=== PATIENT | male | born 1950 | race Caucasian/White ===

== ENCOUNTER 2018-01-13 10:21 | Inpatient (IN) | payer OTHER, MEDICARE ==
[~2018-01-13] VITALS: Ht 175.3 cm; Wt 85.9 kg
[2018-01-13 11:54] LABS: BASOPHILS % (AUTO) 0.1 % (0-1); EOSINOPHILS % (AUTO) 0 % (0-6); HEMATOCRIT 30.6 % (42.0-52.0); HEMOGLOBIN 10.5 g/dl (14.0-17.9); LYMPHOCYTES # (AUTO) 0.7 X10'3 (1.1-4.8); LYMPHOCYTES % (AUTO) 4.1 % (21-51); MEAN CORPUSCULAR HEMOGLOBIN 29.9 PG (27.0-31.0); MEAN CORPUSCULAR HGB CONC 34.3 % (33.0-36.5); MEAN PLATELET VOLUME 7.4 FL (7.4-10.4); MONOCYTES # (AUTO) 1.3 X10'3 (0-0.9); MONOCYTES % (AUTO) 7.5 % (2-12); NEUTROPHILS # (AUTO) 15.7 X10'3 (1.8-7.7); NEUTROPHILS % (AUTO) 88.3 % (42-75); PLATELET COUNT 314 X10'3 (140-440); RED BLOOD COUNT 3.51 X10'6 (4.70-6.10); WHITE BLOOD COUNT 17.7 X10'3 (4.5-11.0)
[2018-01-13 12:23] LABS: ALANINE AMINOTRANSFERASE 20 U/L (12-78); ALBUMIN 2.6 G/DL (3.4-5.0); ALBUMIN/GLOBULIN RATIO 0.6 (1.1-1.5); ALKALINE PHOSPHATASE 92 IU/L (46-116); ANION GAP 9 (8-16); ASPARTATE AMINO TRANSFERASE 14 U/L (10-37); BILIRUBIN,TOTAL 0.6 MG/DL (0.1-1.0); BLOOD UREA NITROGEN 28 MG/DL (7-18); BUN/CREATININE RATIO 17.1 (5.4-32.0); CALCIUM 9.1 MG/DL (8.5-10.1); CHLORIDE 102 MMOL/L (99-107); CREATININE 1.64 MG/DL (0.60-1.10); ETHANOL < 0.010 GM/DL (0.0-0.010); GLUCOSE 291 MG/DL (70-104); LIPASE < 50 U/L (73-393); MAGNESIUM 1.5 MG/DL (1.5-2.4); POTASSIUM 4.3 MMOL/L (3.5-5.1); SODIUM 137 MMOL/L (135-145); TOTAL CARBON DIOXIDE 26.3 MMOL/L (24-32); TOTAL PROTEIN 7.1 G/DL (6.4-8.2); eGFR 42 ML/MIN
[2018-01-13 12:53] LABS: INR 1.1 INR; PARTIAL THROMBOPLASTIN TIME 31 SECONDS (22-32); PROTHROMBIN TIME 11.8 SECONDS (9.0-12.0)
[2018-01-13 13:23] LABS: CLARITY,URINE CLEAR (Clear); COLOR,URINE YELLOW (Yellow); GLUCOSE, URINE >=1000 mg/dl (Neg); KETONES,URINE 15 mg/dl (Neg); LEUKOCYTE ESTERASE ,URINE NEGATIVE (Neg); NITRITES, URINE NEGATIVE (Neg); OCCULT BLOOD,URINE SMALL (Neg); PROTEIN,URINE 30 mg/dl (Neg); UA COLLECTION TYPE CLN CATCH MIDSTREAM; UROBILINOGEN,URINE 0.2 E.U/dL (0.2-1.0)
[2018-01-13 13:35] LABS: HYALINE CASTS >30 /LPF (NEGATIVE); SQUAMOUS EPITHELIAL CELL,UR FEW /LPF (FEW)
[2018-01-13 13:37] LABS: BACTERIA,URINE 1+ /HPF (Neg); RBC,URINE 0-2 /HPF (0-2); WBC,URINE 0-4 /HPF (0-4)
[2018-01-13] MEDS ORDERED: levoFLOXACIN-Levaquin 750MG/D5 150 ML IV ONE (13:55)
[2018-01-13] MEDS ORDERED: CefTRIAXone 2gm/NS 100ml IVPB 100 ML IV ONE (13:55)
[2018-01-13] MEDS ORDERED: magnesium 2GM in 50ml NS 50 ML IV PRN (14:20)
[2018-01-13] MEDS ORDERED: potassium Cl 20 mEq SR tablet PO PRN ×2 (14:20)
[2018-01-13] MEDS ORDERED: magnesium hydroxide 30ml (MOM) UD suspension PO PRN (14:20)
[2018-01-13] MEDS ORDERED: morphine 4 MG/ML inj SYRINge IV PRN ×2 (14:20)
[2018-01-13] MEDS ORDERED: magnesium 4gm in 100ml NS 100 ML IV PRN (14:20)
[2018-01-13] MEDS ORDERED: mag hydrox/Alum hydrox/simeth 30ml oral suspension PO PRN (14:20)
[2018-01-13] MEDS ORDERED: potassium Cl 40MEQ/NS 500ml 500 ML IV PRN ×2 (14:20)
[2018-01-13] MEDS ORDERED: magnesium Cl slow-release 64mg tablet PO PRN (14:20)
[2018-01-13] MEDS ORDERED: acetaminophen 325mg tablet PO PRN ×2 (14:20)
[2018-01-13] MEDS ORDERED: ondansetron/PF 4mg/2ml inj IV PRN (14:20)
[2018-01-13] MEDS: HYDROcodone/acetaminophen 10/325mg tab PO PRN (15:40)
[2018-01-13] MEDS: normal saline 1000ml 1,000 ML IV SCH ×2 (16:55→22:58)
[2018-01-13] MEDS ORDERED: temazepam 15mg capsule PO PRN (21:00)
[2018-01-13] MEDS: heparin, porcine 5000 units/ml vial SQ SCH (22:59)
[2018-01-14] VITALS: BP 137/69
[2018-01-14] MEDS ORDERED: dextrose 50%-water 50ml dispensing syringe IV PRN ×2 (00:30)
[2018-01-14] MEDS ORDERED: dextrose ORAL solution 15 GM/59 ML bottle PO PRN (00:30)
[2018-01-14] MEDS ORDERED: glucagon, human recombinant 1mg kit SUBCUT PRN (00:30)
[2018-01-14] MEDS ORDERED: MESSAGE TO PHARMACY PO ONE (00:30)
[2018-01-14] MEDS ORDERED: pantoprazole 40 MG vial IV ONE (00:35)
[2018-01-14 05:11] LABS: INR 1.1 INR; PROTHROMBIN TIME 11.8 SECONDS (9.0-12.0)
[2018-01-14 05:17] LABS: BASOPHILS % (AUTO) 0.1 % (0-1); EOSINOPHILS # (AUTO) 0.5 X10'3 (0-0.9); EOSINOPHILS % (AUTO) 2.4 % (0-6); HEMATOCRIT 31.2 % (42.0-52.0); HEMOGLOBIN 10.6 g/dl (14.0-17.9); LYMPHOCYTES # (AUTO) 0.7 X10'3 (1.1-4.8); LYMPHOCYTES % (AUTO) 3.6 % (21-51); MEAN CORPUSCULAR HEMOGLOBIN 30.5 PG (27.0-31.0); MEAN CORPUSCULAR HGB CONC 34.1 % (33.0-36.5); MEAN CORPUSCULAR VOLUME 89.5 FL (78-98); MEAN PLATELET VOLUME 7.9 FL (7.4-10.4); MONOCYTES # (AUTO) 1.5 X10'3 (0-0.9); MONOCYTES % (AUTO) 7.6 % (2-12); NEUTROPHILS # (AUTO) 16.5 X10'3 (1.8-7.7); NEUTROPHILS % (AUTO) 86.3 % (42-75); PLATELET COUNT 322 X10'3 (140-440); RED BLOOD COUNT 3.49 X10'6 (4.70-6.10); RED CELL DISTRIBUTION WIDTH 13.2 % (11.5-14.5); WHITE BLOOD COUNT 19.1 X10'3 (4.5-11.0)
[2018-01-14 05:31] LABS: ALBUMIN 2.3 G/DL (3.4-5.0); ANION GAP 8 (8-16); BLOOD UREA NITROGEN 29 MG/DL (7-18); BUN/CREATININE RATIO 19.1 (5.4-32.0); CALCIUM 8.9 MG/DL (8.5-10.1); CHLORIDE 103 MMOL/L (99-107); CREATININE 1.52 MG/DL (0.60-1.10); GLUCOSE 269 MG/DL (70-104); MAGNESIUM 1.5 MG/DL (1.5-2.4); POTASSIUM 4.8 MMOL/L (3.5-5.1); SODIUM 138 MMOL/L (135-145); TOTAL CARBON DIOXIDE 26.6 MMOL/L (24-32); eGFR 46 ML/MIN
[2018-01-14 06:38] LABS: HEMOGLOBIN A1C 10.8 % (4.5-6.2)
[2018-01-14 07:00] VITALS: BP 123/55
[2018-01-14] MEDS: cefTRIAXone 1g/NS 100ml IVPB 100 ML IV SCH (07:32)
[2018-01-14] MEDS: K and/or MAG REPLACEMENT MC SCH (07:33)
[2018-01-14] MEDS: heparin, porcine 5000 units/ml vial SQ SCH ×2 (07:34→20:23)
[2018-01-14] MEDS: HYDROcodone/acetaminophen 10/325mg tab PO PRN (07:35)
[2018-01-14] MEDS ORDERED: levoFLOXACIN-Levaquin 750MG/D5 150 ML IV SCH (08:00)
[2018-01-14 12:00] VITALS: BP 102/45
[2018-01-14] MEDS: insulin Lispro (HumaLOG) vial - multi-dose SQ SCH ×2 (13:42→21:14)
[2018-01-14] MEDS: diatr meglu/diatrizoate 30ml oral sol.-(3 dose) bottle PO SCH ×3 (14:28→19:34)
[2018-01-14] MEDS ORDERED: ATOR40TA3 PO (15:40)
[2018-01-14] MEDS ORDERED: PANT40TA4 PO (15:41)
[2018-01-14] MEDS ORDERED: LOSA50TA3 PO (15:41)
[2018-01-14] MEDS ORDERED: LEVO50TA PO (15:41)
[2018-01-14] MEDS ORDERED: [UNRECOGNIZED DRUG - OTHER] (15:41)
[2018-01-14] MEDS ORDERED: DEXT1TAB15 PO (15:41)
[2018-01-14] MEDS: metroNIDAZOLE-Flagyl 500mg/NS 100 ML IV SCH (17:41)
[2018-01-14 20:00] VITALS: BP 137/68
[2018-01-14] MEDS: lactobacillus rhamnosus 10,000 MMU CELLS/CAPSULE PO SCH (20:22)
[2018-01-14] MEDS: insulin glargine (Lantus) pen - multi-dose SQ SCH (21:18)
[2018-01-15] VITALS (7 sets, daily range): BP systolic 114–139; BP diastolic 47–61
[2018-01-15] MEDS: normal saline 1000ml 1,000 ML IV SCH (00:16)
[2018-01-15] MEDS: metroNIDAZOLE-Flagyl 500mg/NS 100 ML IV SCH ×3 (00:16→16:13)
[2018-01-15] MEDS: HYDROcodone/acetaminophen 5mg/325mg tablet PO PRN ×2 (04:17→19:16)
[2018-01-15 05:59] LABS: BASOPHILS % (AUTO) 0 % (0-1); EOSINOPHILS # (AUTO) 0.3 X10'3 (0-0.9); EOSINOPHILS % (AUTO) 1.7 % (0-6); HEMATOCRIT 28.9 % (42.0-52.0); HEMOGLOBIN 9.8 g/dl (14.0-17.9); LYMPHOCYTES # (AUTO) 0.7 X10'3 (1.1-4.8); LYMPHOCYTES % (AUTO) 4.3 % (21-51); MEAN CORPUSCULAR HEMOGLOBIN 30.1 PG (27.0-31.0); MEAN CORPUSCULAR VOLUME 88.5 FL (78-98); MEAN PLATELET VOLUME 8.1 FL (7.4-10.4); MONOCYTES # (AUTO) 1.2 X10'3 (0-0.9); MONOCYTES % (AUTO) 7.3 % (2-12); NEUTROPHILS # (AUTO) 14.6 X10'3 (1.8-7.7); NEUTROPHILS % (AUTO) 86.7 % (42-75); PLATELET COUNT 298 X10'3 (140-440); RED BLOOD COUNT 3.27 X10'6 (4.70-6.10); RED CELL DISTRIBUTION WIDTH 13.2 % (11.5-14.5); WHITE BLOOD COUNT 16.8 X10'3 (4.5-11.0)
[2018-01-15 06:13] LABS: ALBUMIN 2.1 G/DL (3.4-5.0); ANION GAP 13 (8-16); BLOOD UREA NITROGEN 31 MG/DL (7-18); BUN/CREATININE RATIO 19.5 (5.4-32.0); CALCIUM 8.6 MG/DL (8.5-10.1); CHLORIDE 98 MMOL/L (99-107); CREATININE 1.59 MG/DL (0.60-1.10); GLUCOSE 395 MG/DL (70-104); MAGNESIUM 1.5 MG/DL (1.5-2.4); POTASSIUM 4.6 MMOL/L (3.5-5.1); SODIUM 134 MMOL/L (135-145); TOTAL CARBON DIOXIDE 22.6 MMOL/L (24-32); eGFR 44 ML/MIN
[2018-01-15 06:28] LABS: INR 1.1 INR; PROTHROMBIN TIME 11.2 SECONDS (9.0-12.0)
[2018-01-15] MEDS: K and/or MAG REPLACEMENT MC SCH (08:00)
[2018-01-15] MEDS: insulin Lispro (HumaLOG) vial - multi-dose SQ SCH ×3 (08:48→19:14)
[2018-01-15] MEDS: lactobacillus rhamnosus 10,000 MMU CELLS/CAPSULE PO SCH ×2 (08:49→19:06)
[2018-01-15] MEDS: heparin, porcine 5000 units/ml vial SQ SCH ×2 (08:50→19:07)
[2018-01-15] MEDS: cefTRIAXone 1g/NS 100ml IVPB 100 ML IV SCH (09:53)
[2018-01-15] MEDS: atorvastatin 20mg tablet PO SCH (21:53)
[2018-01-15] MEDS: insulin glargine (Lantus) pen - multi-dose SQ SCH (21:59)
[2018-01-15] MEDS: piperacillin-tazo 2.25gm/50ml 50 ML IV SCH (23:59)
[2018-01-16] VITALS: BP 135/59
[2018-01-16] MEDS: metroNIDAZOLE-Flagyl 500mg/NS 100 ML IV SCH ×2 (01:14→10:53)
[2018-01-16 04:42] LABS: BASOPHILS % (AUTO) 0 % (0-1); EOSINOPHILS # (AUTO) 0.4 X10'3 (0-0.9); EOSINOPHILS % (AUTO) 2.4 % (0-6); HEMATOCRIT 30.6 % (42.0-52.0); HEMOGLOBIN 10.4 g/dl (14.0-17.9); LYMPHOCYTES % (AUTO) 5.7 % (21-51); MEAN CORPUSCULAR HEMOGLOBIN 30.3 PG (27.0-31.0); MEAN CORPUSCULAR HGB CONC 34.1 % (33.0-36.5); MEAN PLATELET VOLUME 7.5 FL (7.4-10.4); MONOCYTES # (AUTO) 1.1 X10'3 (0-0.9); MONOCYTES % (AUTO) 6.4 % (2-12); NEUTROPHILS # (AUTO) 15.1 X10'3 (1.8-7.7); NEUTROPHILS % (AUTO) 85.5 % (42-75); PLATELET COUNT 360 X10'3 (140-440); RED BLOOD COUNT 3.43 X10'6 (4.70-6.10); WHITE BLOOD COUNT 17.6 X10'3 (4.5-11.0)
[2018-01-16 04:52] LABS: INR 1.1 INR; PROTHROMBIN TIME 11.8 SECONDS (9.0-12.0)
[2018-01-16 04:54] LABS: ALBUMIN 2.1 G/DL (3.4-5.0); ANION GAP 10 (8-16); BLOOD UREA NITROGEN 30 MG/DL (7-18); BUN/CREATININE RATIO 21.4 (5.4-32.0); CALCIUM 8.5 MG/DL (8.5-10.1); CHLORIDE 101 MMOL/L (99-107); GLUCOSE 203 MG/DL (70-104); MAGNESIUM 1.6 MG/DL (1.5-2.4); POTASSIUM 4.1 MMOL/L (3.5-5.1); SODIUM 136 MMOL/L (135-145); TOTAL CARBON DIOXIDE 24.7 MMOL/L (24-32); eGFR 51 ML/MIN
[2018-01-16 06:43] VITALS: BP 151/70
[2018-01-16] MEDS ORDERED: CefTRIAXone/D5W-Rocephin 1gm 50 ML IV SCH (08:00)
[2018-01-16] MEDS: K and/or MAG REPLACEMENT MC SCH (08:00)
[2018-01-16] MEDS: insulin Lispro (HumaLOG) vial - multi-dose SQ SCH ×3 (09:50→19:27)
[2018-01-16] MEDS: heparin, porcine 5000 units/ml vial SQ SCH ×2 (09:53→19:30)
[2018-01-16] MEDS: levoTHYROXINE 25mcg tablet PO SCH (09:54)
[2018-01-16] MEDS: lactobacillus rhamnosus 10,000 MMU CELLS/CAPSULE PO SCH ×2 (09:54→19:30)
[2018-01-16] MEDS: pantoprazole 40mg Tablet.DR PO SCH (09:54)
[2018-01-16] MEDS: losartan 50mg tablet PO SCH (09:54)
[2018-01-16] MEDS: piperacillin-tazo 2.25gm/50ml 50 ML IV SCH ×2 (10:53→16:09)
[2018-01-16 11:00] VITALS: BP 141/69
[2018-01-16] MEDS: HYDROcodone/acetaminophen 10/325mg tab PO PRN (14:42)
[2018-01-16 20:00] VITALS: BP 109/52
[2018-01-16] MEDS: insulin glargine (Lantus) pen - multi-dose SQ SCH (22:31)
[2018-01-16] MEDS: atorvastatin 20mg tablet PO SCH (22:32)
[2018-01-17] VITALS: BP 106/51
[2018-01-17] MEDS: piperacillin-tazo 2.25gm/50ml 50 ML IV SCH ×3 (00:04→16:42)
[2018-01-17 05:43] LABS: BASOPHILS % (AUTO) 0 % (0-1); EOSINOPHILS # (AUTO) 0.5 X10'3 (0-0.9); EOSINOPHILS % (AUTO) 2.3 % (0-6); HEMATOCRIT 29.9 % (42.0-52.0); HEMOGLOBIN 10.5 g/dl (14.0-17.9); LYMPHOCYTES % (AUTO) 4.3 % (21-51); MEAN CORPUSCULAR HEMOGLOBIN 30.7 PG (27.0-31.0); MEAN CORPUSCULAR HGB CONC 35.1 % (33.0-36.5); MEAN CORPUSCULAR VOLUME 87.3 FL (78-98); MEAN PLATELET VOLUME 7.4 FL (7.4-10.4); MONOCYTES # (AUTO) 1.5 X10'3 (0-0.9); MONOCYTES % (AUTO) 6.2 % (2-12); NEUTROPHILS # (AUTO) 20.8 X10'3 (1.8-7.7); NEUTROPHILS % (AUTO) 87.2 % (42-75); PLATELET COUNT 375 X10'3 (140-440); RED BLOOD COUNT 3.42 X10'6 (4.70-6.10); RED CELL DISTRIBUTION WIDTH 13.7 % (11.5-14.5); WHITE BLOOD COUNT 23.9 X10'3 (4.5-11.0)
[2018-01-17 05:58] LABS: INR 1.2 INR; PROTHROMBIN TIME 11.9 SECONDS (9.0-12.0)
[2018-01-17 06:02] LABS: ALBUMIN 2.1 G/DL (3.4-5.0); ANION GAP 11 (8-16); BLOOD UREA NITROGEN 34 MG/DL (7-18); BUN/CREATININE RATIO 21.7 (5.4-32.0); CALCIUM 8.4 MG/DL (8.5-10.1); CHLORIDE 99 MMOL/L (99-107); CREATININE 1.57 MG/DL (0.60-1.10); GLUCOSE 213 MG/DL (70-104); MAGNESIUM 1.8 MG/DL (1.5-2.4); POTASSIUM 3.8 MMOL/L (3.5-5.1); SODIUM 135 MMOL/L (135-145); TOTAL CARBON DIOXIDE 25.3 MMOL/L (24-32); eGFR 44 ML/MIN
[2018-01-17 07:00] VITALS: BP 153/78
[2018-01-17] MEDS: losartan 50mg tablet PO SCH (07:57)
[2018-01-17] MEDS: CefTRIAXone inj 1,000 MG in normal saline 100ml IV soln 100 ML IV SCH (07:57)
[2018-01-17] MEDS: lactobacillus rhamnosus 10,000 MMU CELLS/CAPSULE PO SCH ×2 (07:58→19:47)
[2018-01-17] MEDS: pantoprazole 40mg Tablet.DR PO SCH (07:58)
[2018-01-17] MEDS: heparin, porcine 5000 units/ml vial SQ SCH ×2 (07:59→19:47)
[2018-01-17] MEDS: K and/or MAG REPLACEMENT MC SCH (08:00)
[2018-01-17] MEDS: HYDROcodone/acetaminophen 10/325mg tab PO PRN (08:30)
[2018-01-17] MEDS: insulin Lispro (HumaLOG) vial - multi-dose SQ SCH ×3 (09:37→19:45)
[2018-01-17] MEDS: levoTHYROXINE 25mcg tablet PO SCH (09:45)
[2018-01-17 11:00] VITALS: BP 105/57
[2018-01-17 20:00] VITALS: BP 101/51
[2018-01-17] MEDS: insulin glargine (Lantus) pen - multi-dose SQ SCH (21:49)
[2018-01-17] MEDS: atorvastatin 20mg tablet PO SCH (21:50)
[2018-01-18] VITALS (11 sets, daily range): BP systolic 105–157; BP diastolic 48–91
[2018-01-18] MEDS: piperacillin-tazo 2.25gm/50ml 50 ML IV SCH ×4 (01:37→16:23)
[2018-01-18] MEDS: levoTHYROXINE 25mcg tablet PO SCH (01:38)
[2018-01-18 05:43] LABS: BASOPHILS % (AUTO) 0 % (0-1); EOSINOPHILS # (AUTO) 0.5 X10'3 (0-0.9); EOSINOPHILS % (AUTO) 2.4 % (0-6); HEMATOCRIT 28.2 % (42.0-52.0); HEMOGLOBIN 9.7 g/dl (14.0-17.9); LYMPHOCYTES # (AUTO) 1.2 X10'3 (1.1-4.8); LYMPHOCYTES % (AUTO) 5.6 % (21-51); MEAN CORPUSCULAR HEMOGLOBIN 30.2 PG (27.0-31.0); MEAN CORPUSCULAR HGB CONC 34.3 % (33.0-36.5); MEAN CORPUSCULAR VOLUME 87.9 FL (78-98); MEAN PLATELET VOLUME 7.8 FL (7.4-10.4); MONOCYTES # (AUTO) 1.6 X10'3 (0-0.9); MONOCYTES % (AUTO) 7.2 % (2-12); NEUTROPHILS # (AUTO) 18.6 X10'3 (1.8-7.7); NEUTROPHILS % (AUTO) 84.8 % (42-75); PLATELET COUNT 376 X10'3 (140-440); RED BLOOD COUNT 3.21 X10'6 (4.70-6.10); RED CELL DISTRIBUTION WIDTH 13.1 % (11.5-14.5); WHITE BLOOD COUNT 21.9 X10'3 (4.5-11.0)
[2018-01-18 05:57] LABS: INR 1.2 INR; PROTHROMBIN TIME 12.2 SECONDS (9.0-12.0)
[2018-01-18 06:25] LABS: ALBUMIN 1.9 G/DL (3.4-5.0); ANION GAP 10 (8-16); BLOOD UREA NITROGEN 35 MG/DL (7-18); BUN/CREATININE RATIO 22.6 (5.4-32.0); CALCIUM 8.3 MG/DL (8.5-10.1); CHLORIDE 100 MMOL/L (99-107); CREATININE 1.55 MG/DL (0.60-1.10); GLUCOSE 231 MG/DL (70-104); MAGNESIUM 1.8 MG/DL (1.5-2.4); POTASSIUM 3.8 MMOL/L (3.5-5.1); SODIUM 134 MMOL/L (135-145); TOTAL CARBON DIOXIDE 23.6 MMOL/L (24-32); eGFR 45 ML/MIN
[2018-01-18] MEDS: K and/or MAG REPLACEMENT MC SCH (08:00)
[2018-01-18] MEDS: heparin, porcine 5000 units/ml vial SQ SCH ×2 (08:00→19:12)
[2018-01-18] MEDS ORDERED: fentaNYL/PF 50MCG/1 ML 2ML syringe ONE (08:26)
[2018-01-18] MEDS ORDERED: fentaNYL/PF 50MCG/1 ML 2ML syringe IV PRN (08:30)
[2018-01-18] MEDS ORDERED: LIDOcaine 1%/PF (10mg/ml) 5ml vial SQ ONE (08:30)
[2018-01-18] MEDS: pantoprazole 40mg Tablet.DR PO SCH (10:09)
[2018-01-18] MEDS: lactobacillus rhamnosus 10,000 MMU CELLS/CAPSULE PO SCH ×2 (10:09→19:12)
[2018-01-18] MEDS: losartan 50mg tablet PO SCH (10:14)
[2018-01-18] MEDS: insulin Lispro (HumaLOG) vial - multi-dose SQ SCH ×3 (10:22→19:12)
[2018-01-18] MEDS: CefTRIAXone inj 1,000 MG in normal saline 100ml IV soln 100 ML IV SCH (12:14)
[2018-01-18] MEDS: HYDROcodone/acetaminophen 10/325mg tab PO PRN ×2 (15:09→19:14)
[2018-01-18] MEDS: atorvastatin 20mg tablet PO SCH (21:31)
[2018-01-18] MEDS: insulin glargine (Lantus) pen - multi-dose SQ SCH (21:41)
[2018-01-19] VITALS (7 sets, daily range): BP systolic 85–118; BP diastolic 41–57
[2018-01-19] MEDS: piperacillin-tazo 2.25gm/50ml 50 ML IV SCH ×2 (00:07→07:04)
[2018-01-19] MEDS: levoTHYROXINE 25mcg tablet PO SCH (05:22)
[2018-01-19] MEDS: losartan 50mg tablet PO SCH (07:04)
[2018-01-19] MEDS: pantoprazole 40mg Tablet.DR PO SCH (07:04)
[2018-01-19] MEDS: heparin, porcine 5000 units/ml vial SQ SCH ×2 (07:04→18:56)
[2018-01-19] MEDS: lactobacillus rhamnosus 10,000 MMU CELLS/CAPSULE PO SCH ×2 (07:04→18:55)
[2018-01-19] MEDS: K and/or MAG REPLACEMENT MC SCH (07:12)
[2018-01-19] MEDS: CefTRIAXone inj 1,000 MG in normal saline 100ml IV soln 100 ML IV SCH (08:49)
[2018-01-19] MEDS: insulin Lispro (HumaLOG) vial - multi-dose SQ SCH ×3 (08:59→18:53)
[2018-01-19] MEDS ORDERED: normal saline 1000ml 1,000 ML IV ONE (12:35)
[2018-01-19] MEDS ORDERED: normal saline 500ml IV soln 1,000 ML IV ONE (13:00)
[2018-01-19] MEDS: piperacillin/tazobactam inj. 3.375 GM in normal saline 100ml IV SCH ×2 (15:25→19:13)
[2018-01-19 16:38] LABS: BASOPHILS % (AUTO) 0.1 % (0-1); EOSINOPHILS # (AUTO) 0.4 X10'3 (0-0.9); EOSINOPHILS % (AUTO) 2.9 % (0-6); HEMATOCRIT 27.8 % (42.0-52.0); HEMOGLOBIN 9.4 g/dl (14.0-17.9); LYMPHOCYTES # (AUTO) 0.9 X10'3 (1.1-4.8); LYMPHOCYTES % (AUTO) 5.9 % (21-51); MEAN CORPUSCULAR HEMOGLOBIN 29.5 PG (27.0-31.0); MEAN CORPUSCULAR HGB CONC 33.8 % (33.0-36.5); MEAN CORPUSCULAR VOLUME 87.3 FL (78-98); MEAN PLATELET VOLUME 7.1 FL (7.4-10.4); MONOCYTES # (AUTO) 1.4 X10'3 (0-0.9); MONOCYTES % (AUTO) 8.9 % (2-12); NEUTROPHILS # (AUTO) 12.5 X10'3 (1.8-7.7); NEUTROPHILS % (AUTO) 82.2 % (42-75); PLATELET COUNT 445 X10'3 (140-440); RED BLOOD COUNT 3.18 X10'6 (4.70-6.10); RED CELL DISTRIBUTION WIDTH 13.4 % (11.5-14.5); WHITE BLOOD COUNT 15.1 X10'3 (4.5-11.0)
[2018-01-19 16:49] LABS: ALBUMIN 1.8 G/DL (3.4-5.0); ANION GAP 7 (8-16); BLOOD UREA NITROGEN 28 MG/DL (7-18); BUN/CREATININE RATIO 20.9 (5.4-32.0); CALCIUM 8.4 MG/DL (8.5-10.1); CHLORIDE 101 MMOL/L (99-107); CREATININE 1.34 MG/DL (0.60-1.10); GLUCOSE 174 MG/DL (70-104); POTASSIUM 4.2 MMOL/L (3.5-5.1); SODIUM 137 MMOL/L (135-145); TOTAL CARBON DIOXIDE 28.9 MMOL/L (24-32); eGFR 53 ML/MIN
[2018-01-19] MEDS: insulin glargine (Lantus) pen - multi-dose SQ SCH (20:53)
[2018-01-19] MEDS: atorvastatin 20mg tablet PO SCH (20:57)
[2018-01-20] VITALS (11 sets, daily range): BP systolic 82–153; BP diastolic 49–73
[2018-01-20] MEDS: piperacillin/tazobactam inj. 3.375 GM in normal saline 100ml IV SCH ×4 (01:37→19:53)
[2018-01-20] MEDS: levoTHYROXINE 25mcg tablet PO SCH ×2 (05:16→08:09)
[2018-01-20] MEDS: K and/or MAG REPLACEMENT MC SCH (08:00)
[2018-01-20] MEDS: heparin, porcine 5000 units/ml vial SQ SCH ×2 (08:00→19:52)
[2018-01-20] MEDS: pantoprazole 40mg Tablet.DR PO SCH (08:08)
[2018-01-20] MEDS: lactobacillus rhamnosus 10,000 MMU CELLS/CAPSULE PO SCH ×2 (08:08→19:52)
[2018-01-20] MEDS: CefTRIAXone inj 1,000 MG in normal saline 100ml IV soln 100 ML IV SCH (08:09)
[2018-01-20] MEDS: insulin Lispro (HumaLOG) vial - multi-dose SQ SCH ×3 (09:27→19:47)
[2018-01-20] MEDS ORDERED: NORMAL SALINE ICATH ONE (11:15)
[2018-01-20] MEDS ORDERED: FLUSH ICATH ONE (11:15)
[2018-01-20] MEDS ORDERED: TPA CATHFLO ICATH ONE (11:15)
[2018-01-20] MEDS ORDERED: tPA-cathflo 2mg/2ml IV flush 2 MG in normal saline 100ml IV soln 20 ML ICATH ONE (11:25)
[2018-01-20 16:24] LABS: LYMPHOCYTES,BODY FLUID 11 %; MONOCYTES,BODY FLUID 1 %; NEUTROPHILS,BODY FLUID 88 %
[2018-01-20 16:26] LABS: BFAPPEAR CLOUDY
[2018-01-20 16:27] LABS: BF RBC COUNT 1150 /CU MM; BF WBC COUNT 1375 /CU MM (0-1000); BFCOLOR YELLOW; BFVOLUME 53 ML
[2018-01-20] MEDS: HYDROcodone/acetaminophen 5mg/325mg tablet PO PRN (20:14)
[2018-01-20] MEDS: atorvastatin 20mg tablet PO SCH (21:36)
[2018-01-20] MEDS: insulin glargine (Lantus) pen - multi-dose SQ SCH (21:41)
[2018-01-21 00:10] VITALS: BP 115/88
[2018-01-21] MEDS: piperacillin/tazobactam inj. 3.375 GM in normal saline 100ml IV SCH ×4 (01:45→19:08)
[2018-01-21 06:13] LABS: BASOPHILS % (AUTO) 0.2 % (0-1); EOSINOPHILS # (AUTO) 0.6 X10'3 (0-0.9); EOSINOPHILS % (AUTO) 4.5 % (0-6); HEMATOCRIT 29.1 % (42.0-52.0); HEMOGLOBIN 10.2 g/dl (14.0-17.9); LYMPHOCYTES # (AUTO) 1.4 X10'3 (1.1-4.8); LYMPHOCYTES % (AUTO) 10.4 % (21-51); MEAN CORPUSCULAR HEMOGLOBIN 30.1 PG (27.0-31.0); MEAN CORPUSCULAR HGB CONC 35.1 % (33.0-36.5); MEAN CORPUSCULAR VOLUME 85.8 FL (78-98); MEAN PLATELET VOLUME 7.2 FL (7.4-10.4); MONOCYTES # (AUTO) 1.3 X10'3 (0-0.9); MONOCYTES % (AUTO) 9.3 % (2-12); NEUTROPHILS # (AUTO) 10.2 X10'3 (1.8-7.7); NEUTROPHILS % (AUTO) 75.6 % (42-75); PLATELET COUNT 559 X10'3 (140-440); RED BLOOD COUNT 3.39 X10'6 (4.70-6.10); RED CELL DISTRIBUTION WIDTH 13.6 % (11.5-14.5); WHITE BLOOD COUNT 13.5 X10'3 (4.5-11.0)
[2018-01-21 06:18] LABS: ALBUMIN 1.8 G/DL (3.4-5.0); ANION GAP 8 (8-16); BLOOD UREA NITROGEN 17 MG/DL (7-18); BUN/CREATININE RATIO 13.9 (5.4-32.0); CALCIUM 8.8 MG/DL (8.5-10.1); CHLORIDE 103 MMOL/L (99-107); CREATININE 1.22 MG/DL (0.60-1.10); GLUCOSE 145 MG/DL (70-104); POTASSIUM 4.1 MMOL/L (3.5-5.1); SODIUM 140 MMOL/L (135-145); TOTAL CARBON DIOXIDE 28.8 MMOL/L (24-32); eGFR 59 ML/MIN
[2018-01-21 07:06] VITALS: BP 105/61
[2018-01-21 07:08] VITALS: BP_SYST 108; BP_SYST 133; BP_SYST 162; BP_DIAS 46; BP_DIAS 60; BP_DIAS 80
[2018-01-21] MEDS: lactobacillus rhamnosus 10,000 MMU CELLS/CAPSULE PO SCH ×2 (07:42→19:09)
[2018-01-21] MEDS: pantoprazole 40mg Tablet.DR PO SCH (07:42)
[2018-01-21] MEDS: heparin, porcine 5000 units/ml vial SQ SCH ×2 (07:45→19:09)
[2018-01-21] MEDS: CefTRIAXone inj 1,000 MG in normal saline 100ml IV soln 100 ML IV SCH (08:00)
[2018-01-21] MEDS: K and/or MAG REPLACEMENT MC SCH (08:00)
[2018-01-21] MEDS: insulin Lispro (HumaLOG) vial - multi-dose SQ SCH ×3 (09:31→19:07)
[2018-01-21 11:40] VITALS: BP 100/51
[2018-01-21 20:00] VITALS: BP_SYST 124; BP_SYST 125; BP_SYST 98; BP_DIAS 42; BP_DIAS 55; BP_DIAS 68
[2018-01-21] MEDS: atorvastatin 20mg tablet PO SCH (20:59)
[2018-01-21] MEDS: insulin glargine (Lantus) pen - multi-dose SQ SCH (21:08)
[2018-01-22] VITALS: BP 138/58
[2018-01-22] MEDS: piperacillin/tazobactam inj. 3.375 GM in normal saline 100ml IV SCH (01:39)
[2018-01-22 08:00] VITALS: BP_SYST 111; BP_SYST 137; BP_SYST 145; BP_SYST 73; BP_DIAS 45; BP_DIAS 51; BP_DIAS 61; BP_DIAS 76
[2018-01-22] MEDS: K and/or MAG REPLACEMENT MC SCH (08:00)
[2018-01-22] MEDS: levoTHYROXINE 25mcg tablet PO SCH (09:15)
[2018-01-22] MEDS: heparin, porcine 5000 units/ml vial SQ SCH ×2 (09:16→20:11)
[2018-01-22] MEDS: CefTRIAXone inj 1,000 MG in normal saline 100ml IV soln 100 ML IV SCH (09:16)
[2018-01-22] MEDS: pantoprazole 40mg Tablet.DR PO SCH (09:16)
[2018-01-22] MEDS: lactobacillus rhamnosus 10,000 MMU CELLS/CAPSULE PO SCH ×2 (09:16→20:12)
[2018-01-22] MEDS: insulin Lispro (HumaLOG) vial - multi-dose SQ SCH ×3 (10:09→18:57)
[2018-01-22 12:00] VITALS: BP 138/66
[2018-01-22 20:00] VITALS: BP_SYST 114; BP_SYST 129; BP_SYST 131; BP_DIAS 44; BP_DIAS 48; BP_DIAS 53
[2018-01-22] MEDS: atorvastatin 20mg tablet PO SCH (20:12)
[2018-01-22] MEDS: insulin glargine (Lantus) pen - multi-dose SQ SCH (21:00)
[2018-01-22 23:41] VITALS: BP 153/63
[2018-01-23] MEDS: levoTHYROXINE 25mcg tablet PO SCH (04:56)
[2018-01-23 07:00] VITALS: BP 121/68
[2018-01-23 08:00] VITALS: BP_SYST 106; BP_SYST 111; BP_SYST 121; BP_DIAS 48; BP_DIAS 54; BP_DIAS 68
[2018-01-23] MEDS: K and/or MAG REPLACEMENT MC SCH (08:00)
[2018-01-23] MEDS: insulin Lispro (HumaLOG) vial - multi-dose SQ SCH ×3 (09:45→18:46)
[2018-01-23] MEDS: lactobacillus rhamnosus 10,000 MMU CELLS/CAPSULE PO SCH ×2 (09:46→20:09)
[2018-01-23] MEDS: heparin, porcine 5000 units/ml vial SQ SCH ×2 (09:47→20:10)
[2018-01-23] MEDS: CefTRIAXone inj 1,000 MG in normal saline 100ml IV soln 100 ML IV SCH (09:48)
[2018-01-23] MEDS: pantoprazole 40mg Tablet.DR PO SCH (09:48)
[2018-01-23 12:00] VITALS: BP 122/58
[2018-01-23 14:08] LABS: BASOPHILS % (AUTO) 0 % (0-1); EOSINOPHILS # (AUTO) 0.4 X10'3 (0-0.9); EOSINOPHILS % (AUTO) 2.6 % (0-6); HEMATOCRIT 28.7 % (42.0-52.0); HEMOGLOBIN 9.8 g/dl (14.0-17.9); LYMPHOCYTES # (AUTO) 1.1 X10'3 (1.1-4.8); LYMPHOCYTES % (AUTO) 7.4 % (21-51); MEAN CORPUSCULAR HEMOGLOBIN 29.8 PG (27.0-31.0); MEAN CORPUSCULAR HGB CONC 34.3 % (33.0-36.5); MEAN CORPUSCULAR VOLUME 87.1 FL (78-98); NEUTROPHILS # (AUTO) 12.5 X10'3 (1.8-7.7); PLATELET COUNT 696 X10'3 (140-440); RED CELL DISTRIBUTION WIDTH 13.2 % (11.5-14.5); WHITE BLOOD COUNT 15.1 X10'3 (4.5-11.0)
[2018-01-23 14:18] LABS: ANION GAP 8 (8-16); BLOOD UREA NITROGEN 23 MG/DL (7-18); BUN/CREATININE RATIO 16.9 (5.4-32.0); CALCIUM 8.6 MG/DL (8.5-10.1); CHLORIDE 99 MMOL/L (99-107); CREATININE 1.36 MG/DL (0.60-1.10); GLUCOSE 341 MG/DL (70-104); SODIUM 133 MMOL/L (135-145); TOTAL CARBON DIOXIDE 26.4 MMOL/L (24-32); eGFR 52 ML/MIN
[2018-01-23] MEDS ORDERED: alteplase 1 mg/ml 5ml syringe ICATH ONE (15:55)
[2018-01-23] MEDS ORDERED: FLUSH 5 MG ICATH ONE ×2 (16:05→16:10)
[2018-01-23] MEDS ORDERED: NORMAL SALINE ICATH ONE ×2 (16:05→16:10)
[2018-01-23] MEDS ORDERED: TPA CATHFLO ICATH ONE ×2 (16:05→16:10)
[2018-01-23 19:30] VITALS: BP_SYST 103; BP_SYST 123; BP_SYST 128; BP_DIAS 45; BP_DIAS 57; BP_DIAS 65
[2018-01-23] MEDS: atorvastatin 20mg tablet PO SCH (20:10)
[2018-01-23] MEDS: insulin glargine (Lantus) pen - multi-dose SQ SCH (21:00)
[2018-01-23] MEDS: dextrose ORAL solution 15 GM/59 ML bottle PO PRN ×2 (21:13→21:38)
[2018-01-23] MEDS: normal saline 1000ml 1,000 ML IV SCH (21:42)
[2018-01-23 23:30] VITALS: BP 125/47
[2018-01-24] MEDS: levoTHYROXINE 25mcg tablet PO SCH (04:52)
[2018-01-24] MEDS: normal saline 1000ml 1,000 ML IV SCH ×2 (05:49→16:41)
[2018-01-24 07:06] VITALS: BP 119/58
[2018-01-24] MEDS: K and/or MAG REPLACEMENT MC SCH (07:53)
[2018-01-24] MEDS: pantoprazole 40mg Tablet.DR PO SCH (07:59)
[2018-01-24 08:00] VITALS: BP_SYST 110; BP_SYST 122; BP_SYST 129; BP_DIAS 52; BP_DIAS 60
[2018-01-24] MEDS: heparin, porcine 5000 units/ml vial SQ SCH ×2 (08:00→19:09)
[2018-01-24] MEDS: lactobacillus rhamnosus 10,000 MMU CELLS/CAPSULE PO SCH ×2 (08:00→19:10)
[2018-01-24] MEDS: CefTRIAXone inj 1,000 MG in normal saline 100ml IV soln 100 ML IV SCH (08:01)
[2018-01-24] MEDS: insulin Lispro (HumaLOG) vial - multi-dose SQ SCH ×3 (08:19→19:06)
[2018-01-24 08:31] LABS: BASOPHILS % (AUTO) 0.4 % (0-1); EOSINOPHILS # (AUTO) 0.4 X10'3 (0-0.9); EOSINOPHILS % (AUTO) 3.4 % (0-6); HEMATOCRIT 31.4 % (42.0-52.0); HEMOGLOBIN 10.6 g/dl (14.0-17.9); LYMPHOCYTES # (AUTO) 1.3 X10'3 (1.1-4.8); LYMPHOCYTES % (AUTO) 9.8 % (21-51); MEAN CORPUSCULAR HEMOGLOBIN 29.6 PG (27.0-31.0); MEAN CORPUSCULAR HGB CONC 33.7 % (33.0-36.5); MEAN PLATELET VOLUME 7.5 FL (7.4-10.4); MONOCYTES # (AUTO) 0.9 X10'3 (0-0.9); MONOCYTES % (AUTO) 6.6 % (2-12); NEUTROPHILS # (AUTO) 10.4 X10'3 (1.8-7.7); NEUTROPHILS % (AUTO) 79.8 % (42-75); PLATELET COUNT 757 X10'3 (140-440); RED BLOOD COUNT 3.56 X10'6 (4.70-6.10); RED CELL DISTRIBUTION WIDTH 13.4 % (11.5-14.5); WHITE BLOOD COUNT 13.1 X10'3 (4.5-11.0)
[2018-01-24 08:46] LABS: ALANINE AMINOTRANSFERASE 81 U/L (12-78); ALBUMIN 2.2 G/DL (3.4-5.0); ALBUMIN/GLOBULIN RATIO 0.4 (1.1-1.5); ALKALINE PHOSPHATASE 142 IU/L (46-116); ANION GAP 9 (8-16); ASPARTATE AMINO TRANSFERASE 70 U/L (10-37); BILIRUBIN,TOTAL 0.3 MG/DL (0.1-1.0); BLOOD UREA NITROGEN 22 MG/DL (7-18); BUN/CREATININE RATIO 16.9 (5.4-32.0); CHLORIDE 96 MMOL/L (99-107); GLUCOSE 419 MG/DL (70-104); POTASSIUM 5.1 MMOL/L (3.5-5.1); SODIUM 131 MMOL/L (135-145); TOTAL CARBON DIOXIDE 25.9 MMOL/L (24-32); TOTAL PROTEIN 7.8 G/DL (6.4-8.2); eGFR 55 ML/MIN
[2018-01-24] MEDS ORDERED: alteplase 1 mg/ml 5ml syringe ICATH ONE (11:15)
[2018-01-24] MEDS ORDERED: TPA CATHFLO ICATH ONE (11:20)
[2018-01-24] MEDS ORDERED: NORMAL SALINE ICATH ONE (11:20)
[2018-01-24] MEDS ORDERED: FLUSH 5 MG ICATH ONE (11:20)
[2018-01-24] MEDS: dextrose ORAL solution 15 GM/59 ML bottle PO PRN (17:24)
[2018-01-24 19:00] VITALS: BP_SYST 137; BP_SYST 138; BP_SYST 148; BP_DIAS 49; BP_DIAS 51; BP_DIAS 55
[2018-01-24] MEDS: atorvastatin 20mg tablet PO SCH (21:02)
[2018-01-24] MEDS: insulin glargine (Lantus) pen - multi-dose SQ SCH (21:07)
[2018-01-25] MEDS: normal saline 1000ml 1,000 ML IV SCH ×3 (01:22→23:54)
[2018-01-25] MEDS: levoTHYROXINE 25mcg tablet PO SCH (04:33)
[2018-01-25 07:00] VITALS: BP 138/66
[2018-01-25] MEDS: lactobacillus rhamnosus 10,000 MMU CELLS/CAPSULE PO SCH ×2 (07:09→19:42)
[2018-01-25] MEDS: pantoprazole 40mg Tablet.DR PO SCH (07:10)
[2018-01-25] MEDS: heparin, porcine 5000 units/ml vial SQ SCH ×2 (07:10→19:44)
[2018-01-25] MEDS: CefTRIAXone/D5W-Rocephin 1gm 50 ML IV SCH (07:14)
[2018-01-25] MEDS: K and/or MAG REPLACEMENT MC SCH (08:00)
[2018-01-25 08:30] VITALS: BP_SYST 129; BP_SYST 137; BP_SYST 138; BP_DIAS 52; BP_DIAS 62; BP_DIAS 66
[2018-01-25] MEDS: insulin Lispro (HumaLOG) vial - multi-dose SQ SCH ×3 (08:39→21:06)
[2018-01-25 11:00] VITALS: BP 136/60
[2018-01-25 17:02] LABS: BASOPHILS # (AUTO) 0.1 X10'3 (0-0.2); BASOPHILS % (AUTO) 0.8 % (0-1); EOSINOPHILS # (AUTO) 0.4 X10'3 (0-0.9); EOSINOPHILS % (AUTO) 4.8 % (0-6); HEMOGLOBIN 9.7 g/dl (14.0-17.9); LYMPHOCYTES # (AUTO) 1.4 X10'3 (1.1-4.8); LYMPHOCYTES % (AUTO) 16.3 % (21-51); MEAN CORPUSCULAR HEMOGLOBIN 29.7 PG (27.0-31.0); MEAN CORPUSCULAR HGB CONC 33.6 % (33.0-36.5); MEAN CORPUSCULAR VOLUME 88.6 FL (78-98); MEAN PLATELET VOLUME 7.5 FL (7.4-10.4); MONOCYTES # (AUTO) 0.6 X10'3 (0-0.9); MONOCYTES % (AUTO) 7.5 % (2-12); NEUTROPHILS # (AUTO) 5.9 X10'3 (1.8-7.7); NEUTROPHILS % (AUTO) 70.6 % (42-75); PLATELET COUNT 784 X10'3 (140-440); RED BLOOD COUNT 3.27 X10'6 (4.70-6.10); RED CELL DISTRIBUTION WIDTH 13.1 % (11.5-14.5); WHITE BLOOD COUNT 8.3 X10'3 (4.5-11.0)
[2018-01-25] MEDS: dextrose ORAL solution 15 GM/59 ML bottle PO PRN (17:08)
[2018-01-25 17:16] LABS: ALANINE AMINOTRANSFERASE 79 U/L (12-78); ALBUMIN 2.2 G/DL (3.4-5.0); ALBUMIN/GLOBULIN RATIO 0.4 (1.1-1.5); ALKALINE PHOSPHATASE 126 IU/L (46-116); ANION GAP 7 (8-16); ASPARTATE AMINO TRANSFERASE 54 U/L (10-37); BILIRUBIN,TOTAL 0.1 MG/DL (0.1-1.0); BLOOD UREA NITROGEN 19 MG/DL (7-18); BUN/CREATININE RATIO 14.8 (5.4-32.0); CALCIUM 8.7 MG/DL (8.5-10.1); CHLORIDE 103 MMOL/L (99-107); CREATININE 1.28 MG/DL (0.60-1.10); GLUCOSE 66 MG/DL (70-104); SODIUM 138 MMOL/L (135-145); TOTAL CARBON DIOXIDE 27.8 MMOL/L (24-32); TOTAL PROTEIN 7.5 G/DL (6.4-8.2); eGFR 56 ML/MIN
[2018-01-25 20:00] VITALS: BP_SYST 127; BP_SYST 131; BP_SYST 136; BP_DIAS 49; BP_DIAS 55; BP_DIAS 56
[2018-01-25] MEDS: insulin glargine (Lantus) pen - multi-dose SQ SCH (21:05)
[2018-01-25] MEDS: atorvastatin 20mg tablet PO SCH (21:08)
[2018-01-25] MEDS ORDERED: insulin glargine (Lantus) pen - multi-dose SQ ONE (21:10)
[2018-01-26] VITALS: BP 139/69
[2018-01-26] MEDS: levoTHYROXINE 25mcg tablet PO SCH (04:03)
[2018-01-26 04:43] LABS: BASOPHILS # (AUTO) 0.1 X10'3 (0-0.2); EOSINOPHILS # (AUTO) 0.4 X10'3 (0-0.9); HEMATOCRIT 28.5 % (42.0-52.0); HEMOGLOBIN 9.9 g/dl (14.0-17.9); LYMPHOCYTES # (AUTO) 1.9 X10'3 (1.1-4.8); LYMPHOCYTES % (AUTO) 27.8 % (21-51); MEAN CORPUSCULAR HEMOGLOBIN 29.8 PG (27.0-31.0); MEAN CORPUSCULAR HGB CONC 34.6 % (33.0-36.5); MEAN CORPUSCULAR VOLUME 86.1 FL (78-98); MONOCYTES # (AUTO) 0.6 X10'3 (0-0.9); MONOCYTES % (AUTO) 9.2 % (2-12); NEUTROPHILS # (AUTO) 3.8 X10'3 (1.8-7.7); PLATELET COUNT 756 X10'3 (140-440); RED BLOOD COUNT 3.31 X10'6 (4.70-6.10); RED CELL DISTRIBUTION WIDTH 13.7 % (11.5-14.5); WHITE BLOOD COUNT 6.8 X10'3 (4.5-11.0)
[2018-01-26 05:16] LABS: ALANINE AMINOTRANSFERASE 73 U/L (12-78); ALBUMIN/GLOBULIN RATIO 0.4 (1.1-1.5); ALKALINE PHOSPHATASE 117 IU/L (46-116); ANION GAP 7 (8-16); ASPARTATE AMINO TRANSFERASE 51 U/L (10-37); BILIRUBIN,TOTAL 0.2 MG/DL (0.1-1.0); BLOOD UREA NITROGEN 19 MG/DL (7-18); CALCIUM 9.2 MG/DL (8.5-10.1); CHLORIDE 108 MMOL/L (99-107); CREATININE 1.12 MG/DL (0.60-1.10); GLUCOSE 146 MG/DL (70-104); POTASSIUM 4.9 MMOL/L (3.5-5.1); SODIUM 143 MMOL/L (135-145); TOTAL CARBON DIOXIDE 28.3 MMOL/L (24-32); TOTAL PROTEIN 6.9 G/DL (6.4-8.2); eGFR 66 ML/MIN
[2018-01-26 08:00] VITALS: BP_SYST 119; BP_SYST 128; BP_SYST 95; BP_DIAS 40; BP_DIAS 51; BP_DIAS 58
[2018-01-26] MEDS: lactobacillus rhamnosus 10,000 MMU CELLS/CAPSULE PO SCH (08:00)
[2018-01-26] MEDS: K and/or MAG REPLACEMENT MC SCH (08:00)
[2018-01-26] MEDS: heparin, porcine 5000 units/ml vial SQ SCH (08:00)
[2018-01-26] MEDS: pantoprazole 40mg Tablet.DR PO SCH (08:00)
[2018-01-26] MEDS: CefTRIAXone/D5W-Rocephin 1gm 50 ML IV SCH (08:00)
[2018-01-26] MEDS: insulin Lispro (HumaLOG) vial - multi-dose SQ SCH ×2 (09:01→14:12)
[2018-01-26] MEDS: normal saline 1000ml 1,000 ML IV SCH (09:30)
[2018-01-26 11:00] VITALS: BP 127/72
[2018-01-26] MEDS ORDERED: AMOX-580 PO (12:23)
== END 2018-01-26 14:15 | disposition home or self-care (01) | DRG 871 ==
LOC: ER 10:22 → ED HOLD 14:16 → SUR 3N 22:30 → MED 3N 01-16 18:16
PROVIDERS: ADMIT Nurse Practitioner Family; ATTEND Family Medicine
PROC: 0W993ZX Drainage of Right Pleural Cavity, Percutaneous Approach, Diagnostic (ICD-10-PCS; principal; 2018-01-15)
PROC: 0W9930Z Drainage of Right Pleural Cavity with Drainage Device, Percutaneous Approach (ICD-10-PCS; 2018-01-18)
PROC: 0W9930Z Drainage of Right Pleural Cavity with Drainage Device, Percutaneous Approach (ICD-10-PCS; 2018-01-20)
PROC: 0B2QX0Z Change Drainage Device in Pleura, External Approach (ICD-10-PCS; 2018-01-20)
PROC: 3E0L3GC Introduction of Other Therapeutic Substance into Pleural Cavity, Percutaneous Approach (ICD-10-PCS; 2018-01-20)
DX: A41.9 Sepsis, unspecified organism (principal); J18.1 Lobar pneumonia, unspecified organism; J86.9 Pyothorax without fistula; J90 Pleural effusion, not elsewhere classified; D64.9 Anemia, unspecified; E10.9 Type 1 diabetes mellitus without complications; E03.9 Hypothyroidism, unspecified; E78.00 Pure hypercholesterolemia, unspecified; I10 Essential (primary) hypertension; K21.9 Gastro-esophageal reflux disease without esophagitis; N28.9 Disorder of kidney and ureter, unspecified; Z79.4 Long term (current) use of insulin; Z79.899 Other long term (current) drug therapy; Z90.49 Acquired absence of other specified parts of digestive tract
CPT/HCPCS: 32555; 32557; 36415; 71045; 71046; 71250; 74176; 76700; 80048; 80053; 80320; 81001; 82948; 83036; 83605; 83690; 83735; 84484; 85025; 85610; 85730; 87040; 87070; 88108; 88305; 89051; 93005; 96365; 97116; 97162; 97530; 99285; A6223; A6257; A6258; A6402; A6449; C9113; J0696; J1644; J1815; J1956; J2270; J2543; J2997; J3010; J3490; J7030; Q9963